=== PATIENT | male | born 1990 | race Caucasian/White ===

== ENCOUNTER 2017-01-03 11:35 | Emergency (ER) | payer OTHER ==
[~2017-01-03] VITALS: Ht 177.8 cm; Wt 114.0 kg
[2017-01-03] MEDS ORDERED: IOHEXOL 350 MG/ML 10 ML VIAL (for RAD DIAG) IVCONTRAST ONE (11:36)
[2017-01-03 11:38] VITALS: BP 131/84; PULSE 96; RESP 14; TEMP 98.8; O2SAT 98
--- NOTE | 2017-01-03 11:42 | PD ---
Physical Exam Time Seen by Provider: 11:41 Narrative Complaints of chest pain x 2 days, worsening tightness "crushing." +Shortness of breath, nausea. Fever and chills. Hx of IVDA, last used 1.5 days ago. No known cardiac history. Data Data Last Documented VS Vital Signs Date Time Temp Pulse Resp B/P (MAP) Pulse Ox O2 Delivery O2 Flow Rate FiO2 01/03/17 12:04 98 18 98 Room Air 01/03/17 12:01 98.4 129/79 (96) Orders Orders Electrocardiogram (01/03/17 11:43) Complete Blood Count With Diff (01/03/17 11:43) Comprehensive Metabolic Panel (01/03/17 11:43) Prothrombin Time / Inr (Pt) (01/03/17 11:43) Act Partial Throm Time (Ptt) (01/03/17 11:43) Lactic Acid Sepsis Protocol (01/03/17 11:43) Magnesium (Mg) (01/03/17 11:43) Ckmb (Isoenzyme) Profile (01/03/17 11:43) Troponin I (01/03/17 11:43) Urinalysis - C+S If Indicated (01/03/17 11:43) Blood Culture (01/03/17 11:43) Chest, Single Ap (01/03/17 11:43) Westergren Sedimentation Rate (01/03/17 11:43) Lipase (01/03/17 12:03) Ondansetron Inj (Zofran Inj) (01/03/17 12:15) Sodium Chlor 0.9% 1000 Ml Inj (Ns 1000 M (01/03/17 12:07) Famotidine Inj (Pepcid Inj) (01/03/17 12:15) Vascular Access Team Consult/P PRN (01/03/17 12:17) Vascular Poc Ultrasound (01/03/17 ) D-Dimer (01/03/17 12:26) MDM Medical Record Reviewed: Yes Supervised Visit with CHRISTELLE: No Scripts No Active Prescriptions or Reported Meds Condition: Stable Marlen Brandon VISH Jan 03, 2017 11:42
[2017-01-03 12:01] VITALS: BP 129/79; PULSE 92; RESP 18; TEMP 98.4; O2SAT 97
[2017-01-03] MEDS ORDERED: SODIUM CHLOR 0.9% 1000 ML INJ 1,000 ML IV SCH (12:07)
[2017-01-03] MEDS ORDERED: ONDANSETRON HCL 4 MG/2 ML VIAL IVP ONE (12:15)
[2017-01-03] MEDS ORDERED: FAMOTIDINE 20 MG/2 ML VIAL IV PUSH ONE (12:15)
--- NOTE | 2017-01-03 12:15 | PD ---
HPI Chief Complaint: Chest Pain Time Seen by Provider: 11:57 Travel History International Travel<30 days: No Contact w/Intl Traveler<30days: No Traveled to known affect area: No History of Present Illness HPI 26-year-old male that presents to the ED for evaluation of chest pain. Per patient she's had this for about 2 days now. Per patient feels like a pressure. Per patient he feels he is sweating as well as diarrhea. Per patient he last injected IV drugs Dilaudid about 2 days ago and his right arm. He regularly uses IV drugs including Dilaudid. He denies any suicidal or homicidal ideation. He denies any cough or runny nose. Per patient the pain is pressure-like. No history of heart disease. No abdominal pain. No surgeries. No trauma. Per patient the pain is becoming more constant. This is what made him come here. He has allergies to Tylenol and Benadryl. Pain per patient is 7 out of 10. No pain anywhere else. No erythema. Patient denies any other medical issues. Per patient he is trying to quit. [facility] Past Medical History Medical History: Denies Significant Hx Tetanus Vaccination: > 5 Years Past Surgical History Surgical History: No Previous Surgery Social History Alcohol Use: Yes Tobacco Use: Yes Substance Use: Yes Allergies-Medications (Allergen,Severity, Reaction): Coded Allergies: acetaminophen (Verified Allergy, Severe, 01/03/17) diphenhydramine (Verified Allergy, Severe, 01/03/17) Reported Meds & Prescriptions Reported Meds & Active Scripts Active Zofran (Ondansetron HCl) 4 Mg Tab 4 Mg PO Q6HR PRN 14 Days Review of Systems Except as stated in HPI: all other systems reviewed are Neg Physical Exam Narrative GENERAL: SKIN: Warm and dry. Patient has multiple injection sites to the right antecubital area. Some appear to be new. Some appear to be old. HEAD: Atraumatic. Normocephalic. EYES: Pupils equal and round. No scleral icterus. No injection or drainage. ENT: No nasal bleeding or discharge. Mucous membranes pink and moist. Tongue is midline. No uvula deviation. NECK: Trachea midline. No JVD. CARDIOVASCULAR: Regular rate and rhythm. No murmurs, S3, S4. RESPIRATORY: No accessory muscle use. Clear to auscultation. Breath sounds equal bilaterally. GASTROINTESTINAL: Abdomen soft, non-tender, nondistended. Hepatic and splenic margins not palpable. MUSCULOSKELETAL: Extremities without clubbing, cyanosis, or edema. No obvious deformities. Full range of motion of the upper and lower extremities bilaterally. 2+ pulses bilaterally. NEUROLOGICAL: Awake and alert. No obvious cranial nerve deficits. Motor grossly within normal limits. Five out of 5 muscle strength in the arms and legs. Normal speech. PSYCHIATRIC: Appropriate mood and affect; insight and judgment normal. Data Data Last Documented VS Vital Signs Date Time Temp Pulse Resp B/P (MAP) Pulse Ox O2 Delivery O2 Flow Rate FiO2 01/03/17 14:45 74 20 132/82 (99) 98 Room Air 01/03/17 12:01 98.4 Orders Orders Electrocardiogram (01/03/17 11:43) Complete Blood Count With Diff (01/03/17 11:43) Comprehensive Metabolic Panel (01/03/17 11:43) Prothrombin Time / Inr (Pt) (01/03/17 11:43) Act Partial Throm Time (Ptt) (01/03/17 11:43) Lactic Acid Sepsis Protocol (01/03/17 11:43) Magnesium (Mg) (01/03/17 11:43) Ckmb (Isoenzyme) Profile (01/03/17 11:43) Troponin I (01/03/17 11:43) Urinalysis - C+S If Indicated (01/03/17 11:43) Blood Culture (01/03/17 11:43) Chest, Single Ap (01/03/17 11:43) Westergren Sedimentation Rate (01/03/17 11:43) Ondansetron Inj (Zofran Inj) (01/03/17 12:15) Sodium Chlor 0.9% 1000 Ml Inj (Ns 1000 M (01/03/17 12:07) Famotidine Inj (Pepcid Inj) (01/03/17 12:15) Vascular Access Team Consult/P PRN (01/03/17 12:17) Vascular Poc Ultrasound (01/03/17 ) D-Dimer (01/03/17 12:26) Lipase (01/03/17 12:56) Ct Pulmonary Angiogram (01/03/17 ) Iohexol 350 Inj (Omnipaque 350 Inj) (01/03/17 11:36) Labs Laboratory Tests Test 01/03/17 12:50 01/03/17 12:56 Lactic Acid Level 0.8 mmol/L White Blood Count 9.8 TH/MM3 Red Blood Count 5.47 MIL/MM3 Hemoglobin 15.9 GM/DL Hematocrit 46.4 % Mean Corpuscular Volume 84.7 FL Mean Corpuscular Hemoglobin 29.1 PG Mean Corpuscular Hemoglobin Concent 34.4 % Red Cell Distribution Width 13.4 % Platelet Count 288 TH/MM3 Mean Platelet Volume 8.5 FL Neutrophils (%) (Auto) 62.1 % Lymphocytes (%) (Auto) 27.0 % Monocytes (%) (Auto) 5.6 % Eosinophils (%) (Auto) 4.4 % Basophils (%) (Auto) 0.9 % Neutrophils # (Auto) 6.1 TH/MM3 Lymphocytes # (Auto) 2.6 TH/MM3 Monocytes # (Auto) 0.5 TH/MM3 Eosinophils # (Auto) 0.4 TH/MM3 Basophils # (Auto) 0.1 TH/MM3 CBC Comment DIFF FINAL Differential Comment Erythrocyte Sedimentation Rate 11 mm/hr Prothrombin Time 11.7 SEC Prothromb Time International Ratio 1.1 RATIO Activated Partial Thromboplast Time 31.0 SEC D-Dimer Quantitative (PE/DVT) 0.85 MG/L FEU Urine Color YELLOW Urine Turbidity CLEAR Urine pH 6.0 Urine Specific [place] 1.013 Urine Protein NEG mg/dL Urine Glucose (UA) NEG mg/dL Urine Ketones NEG mg/dL Urine Occult Blood NEG Urine Nitrite NEG Urine Bilirubin NEG Urine Urobilinogen 2.0 MG/DL Urine Leukocyte Esterase MOD Urine RBC LESS THAN 1 /hpf Urine WBC 1 /hpf Urine Mucus FEW /lpf Microscopic Urinalysis Comment CATH-CULT NOT IND Blood Urea Nitrogen 7 MG/DL Creatinine 1.02 MG/DL Random Glucose 100 MG/DL Total Protein 9.0 GM/DL Albumin 3.7 GM/DL Calcium Level 9.4 MG/DL Magnesium Level 2.1 MG/DL Alkaline Phosphatase 105 U/L Aspartate Amino Transf (AST/SGOT) 59 U/L Alanine Aminotransferase (ALT/SGPT) 121 U/L Total Bilirubin 0.6 MG/DL Sodium Level 136 MEQ/L Potassium Level 3.8 MEQ/L Chloride Level 103 MEQ/L Carbon Dioxide Level 27.7 MEQ/L Anion Gap 5 MEQ/L Estimat Glomerular Filtration Rate 88 ML/MIN Total Creatine Kinase 95 U/L Troponin I LESS THAN 0.02 NG/ML Lipase 99 U/L MDM Medical Decision Making Medical Screen Exam Complete: Yes Emergency Medical Condition: Yes Medical Record Reviewed: Yes Interpretation(s) CBC & BMP Diagram 01/03/17 12:56 Total Protein 9.0 H, Albumin 3.7, Calcium Level 9.4, Magnesium Level 2.1, Alkaline Phosphatase 105, Aspartate Amino Transf (AST/SGOT) 59 H, Alanine Aminotransferase (ALT/SGPT) 121 H, Total Bilirubin 0.6 Last Impressions Chest X-Ray 01/03/17 1143 Signed Impressions: Service Date/Time: Tuesday, January 03, 2017 14:26 - CONCLUSION: 1. No acute cardiopulmonary disease. Nuno Poole MD CT negative for PE D-dimmer positive troponin and CKMB negative EKG shows sinus rhythm with no sign of acute ischemia or arrhythmia read by me and attending. ESR negative. Differential Diagnosis Chest pain versus a typical chest pain versus ACS versus withdrawal from opiates versus opiate abuse versus endocarditis less likely Narrative Course 26-year-old male that presents to the ED for evaluation of chest pain. Patient was properly examined and was found to have signs and symptoms consistent appears to be chest pain. Unclear etiology but does appear to be related to his opiate abuse. At this time I recommend labs and imaging. This was discussed in my attending who recommends fluids and antiemetics. Labs and imaging showed no sign of acute disease other than positive d-dimer. CT pulmonary was done. This was negative as well. Patient was reassured. This appears to be likely a typical chest pain with possible anxiety secondary to opiate withdrawal. Patient was given information for outpatient services for substance abuse. My attending Dr Adler evaluated the patient with me and agrees with plan. Close follow with PCP. See ED worsening symptoms. Diagnosis Primary Impression: Atypical chest pain Additional Impression: Opiate withdrawal Patient Instructions: General Instructions Additional Instructions: Take medication as prescribed only as needed. Follow up with outpatient detox facility to help with your Substance abuse. Your blood work and imaging here in the hospital was essentially unremarkable. See ED if worst. Med/Other Pt SpecificInfo: Prescription(s) given Scripts Ondansetron (Zofran) 4 Mg Tab 4 MG PO Q6HR Y for NAUSEA OR VOMITING for 14 Days, TAB 0 Refills Prov: Soontharothai,Rewadee MD 01/03/17 Disposition: 01 DISCHARGE HOME Condition: Stable Rudy Salguero Jan 03, 2017 12:15
[2017-01-03 13:22] LABS: AUTOMATED NEUTROPHIL # 6.1 TH/MM3 (1.8-7.7); BASOPHIL # 0.1 TH/MM3 (0-0.2); BASOPHIL % 0.9 % (0.0-2.0); EOSINOPHIL # 0.4 TH/MM3 (0-0.4); EOSINOPHIL % 4.4 % (0.0-4.0); HEMATOCRIT 46.4 % (39.0-51.0); HEMO FLAGS DIFF FINAL; LYMPHOCYTE # 2.6 TH/MM3 (1.0-4.8); MEAN CELL VOLUME 84.7 FL (80.0-100.0); MEAN CORPUSCULAR HEMOGLOBIN 29.1 PG (27.0-34.0); MEAN CORPUSCULAR HGB CONC 34.4 % (32.0-36.0); MONO % 5.6 % (0.0-8.0); NEUT % 62.1 % (16.0-70.0); PLATELET COUNT 288 TH/MM3 (150-450); RED BLOOD COUNT 5.47 MIL/MM3 (4.50-5.90); RED CELL DISTRIBUTION WIDTH 13.4 % (11.6-17.2); WHITE BLOOD COUNT 9.8 TH/MM3 (4.0-11.0)
[2017-01-03 13:32] LABS: BLOOD, URINE NEG (NEG); COMMENT (UR) CATH-CULT NOT IND; CULTURE IF INDICATED CATH CULTURE NOT IND; GLUCOSE,URINE NEG (NEG); KETONE, URINE NEG (NEG); MUCUS URINE FEW /lpf (OCC); NITRITE,URINE NEG (NEG); URINE COLOR YELLOW (YELLW/STRAW)
[2017-01-03 13:33] LABS: INTERNATIONAL NORMALIZED RATIO 1.1 RATIO; PROTHROMBIN TIME - PATIENT 11.7 SEC (9.8-11.6)
[2017-01-03 13:41] LABS: ALT (GPT) 121 U/L (12-78); ANION GAP 5 MEQ/L (5-15); AST (GOT) 59 U/L (15-37); BICARBONATE 27.7 MEQ/L (21.0-32.0); BLOOD UREA NITROGEN 7 MG/DL (7-18); CHLORIDE 103 MEQ/L (98-107); GLOMERULAR FILTRATION RATE 88 ML/MIN (>89); MAGNESIUM 2.1 MG/DL (1.5-2.5); POTASSIUM 3.8 MEQ/L (3.5-5.1); SODIUM (NA) 136 MEQ/L (136-145)
[2017-01-03 13:44] LABS: ALKALINE PHOSPHATASE 105 U/L (45-117); TOTAL BILIRUBIN ADULT 0.6 MG/DL (0.2-1.0)
[2017-01-03 13:45] LABS: CREATINE KINASE 95 U/L (39-308)
--- NOTE | 2017-01-03 14:26 | RADRPT ---
EXAM DATE/TIME: 01/03/2017 14:26 [facility] COMPARISON: No previous studies available for comparison. INDICATIONS : Chest pain. MEDICAL HISTORY : None. SURGICAL HISTORY : None. ENCOUNTER: Initial ACUITY: 1 day PAIN SCORE: 8/10 LOCATION: Left chest FINDINGS: A single view of the chest demonstrates the lungs to be symmetrically aerated without evidence of mas s, infiltrate or effusion. The cardiomediastinal contours are unremarkable. Osseous structures are intact. CONCLUSION: 1. No acute cardiopulmonary disease. Nuno Poole MD on January 03, 2017 at 14:25 Board Certified Radiologist. This report was verified electronically.
[2017-01-03 14:45] VITALS: BP 132/82; PULSE 74; RESP 20; O2SAT 98
--- NOTE | 2017-01-03 15:56 | RADRPT ---
EXAM DATE/TIME: 01/03/2017 15:02 [facility] COMPARISON: No previous studies available for comparison. INDICATIONS : Substernal chest pain for two days. IV CONTRAST: 125 cc Omnipaque 350 (iohexol) IV RADIATION DOSE: 20.15 CTDIvol (mGy) ; Patient body habitus MEDICAL HISTORY : None SURGICAL HISTORY : None. ENCOUNTER: Initial ACUITY: 1 day PAIN SCALE: 7/10 LOCATION: substernal chest TECHNIQUE: Volumetric scanning of the chest was performed using a pulmonary embolism protocol MIP images were re constructed. Using automated exposure control and adjustment of the mA and/or kV according to patien t size, radiation dose was kept as low as reasonably achievable to obtain optimal diagnostic quality images. DICOM format image data is available electronically for review and comparison. Follow-up recommendations for detected pulmonary nodules are based at a minimum on nodule size and pa tient risk factors according to Fleischner Society Guidelines. FINDINGS: PULMONARY ARTERIES: No filling defects are seen in the pulmonary arteries through the segmental level. LUNGS: There is no consolidation or pneumothorax . No concerning pulmonary nodule is visualized. PLEURAE: There is no pleural thickening or pleural effusion. MEDIASTINUM: There is good visualization of the great vessels of the middle mediastinum. No evidence of mediastin al or hilar adenopathy/mass. MUSCULOSKELETAL: Within normal limits for patient age. MISCELLANEOUS: The visualized upper abdominal organs demonstrate no acute abnormality. CONCLUSION: 1. No evidence of pulmonary embolism. Nuno Poole MD on January 03, 2017 at 15:31 Board Certified Radiologist. This report was verified electronically.
[2017-01-03] MEDS ORDERED: ZOFR4TAB PO (16:24)
[2017-01-03 16:48] VITALS: BP 132/81
--- NOTE | 2017-01-04 08:43 | EKG ---
Date Performed: 01/03/2017 Time Performed: 12:05:10 PTAGE: 26 years EKG: Sinus rhythm ST ELEVATION, PROBABLY EARLY REPOLARIZATION BORDERLINE ECG NO PREVIOUS TRACING DOCTOR: Genia Boo Interpretating Date/Time 01/04/2017 08:41:51
== END 2017-01-03 16:55 | disposition home or self-care (01) ==
LOC: NEPE 11:35
DX: R07.89 Other chest pain (principal); F11.23 Opioid dependence with withdrawal; R19.7 Diarrhea, unspecified; R61 Generalized hyperhidrosis; Z72.0 Tobacco use
CPT/HCPCS: 71010; 71275; 80053; 81001; 82550; 83605; 83690; 83735; 84484; 85025; 85379; 85610; 85652; 85730; 87040; 93005; 96361; 96374; 96375; 99285; J2405; J7030; Q9967